=== PATIENT | male | born 1995 | race Caucasian/White ===

== ENCOUNTER 2017-12-19 13:16 | Emergency (ER) | payer OTHER ==
[2017-12-19 16:43] LABS: BASO % 0.2 % (0.0-1.0); EOS # 0.1 10^3/uL (0.0-0.50); EOS % 0.4 % (0.0-3.0); HEMATOCRIT 49.1 % (42.0-52.0); HEMOGLOBIN 16.8 g/dl (13.5-17.5); IMMATURE GRANULOCYTE % 0.4 % (0-3.0); LYMPH # 0.5 10^3/uL (1.5-6.5); LYMPH % 3.6 % (24.0-44.0); MEAN CORPUSCULAR HGB CONC 34.2 g/dl (32.0-36.5); MEAN CORPUSCULAR VOLUME 84.7 fl (80.0-96.0); MONO # 0.4 10^3/uL (0.0-0.8); MONO % 2.9 % (0.0-5.0); NEUTROPHILS # 12.3 10^3/uL (1.8-7.7); NEUTROPHILS % 92.5 % (36.0-66.0); PLATELET COUNT, AUTOMATED 207 10^3/uL (150-450); RED CELL DISTRIBUTION WIDTH 12.5 % (11.5-14.5); WHITE BLOOD COUNT 13.4 10^3/uL (4.0-10.0)
[2017-12-19] MEDS: MORPHINE 2 MG/ML 1ML SYRINGE (J2270) IV (16:47)
[2017-12-19] MEDS: PANTOPRAZOLE 40MG INJ (PROTONIX) (C9113) IV (16:48)
[2017-12-19] MEDS: ONDANSETRON 4MG/2ML VIAL (J2405) IV (16:48)
[2017-12-19] MEDS: NS 1,000 ML IV (16:48)
[2017-12-19 16:53] LABS: KETONE, URINE AUTO RFX NEGATIVE (NEGATIVE); MUCUS, URINE RFX SMALL (NEGATIVE); NITRITE, URINE AUTO RFX NEGATIVE (NEGATIVE); RBC, URINE AUTO RFX 1 /HPF (0-3); SPECIFIC GRAVITY UR AUTO RFX 1.032 (1.002-1.035); SQUAM EPITHELIAL CELL UR AURFX 0 /HPF (0-6); WBC, URINE AUTO RFX 7 /HPF (0-3)
[2017-12-19 16:54] LABS: LEUKOCYTE ESTERASE UR AUTO RFX 1+ (NEGATIVE)
[2017-12-19] MEDS ORDERED: ISOVUE-370 76% 100ML VIAL (Q9967) As Ordered (17:03)
[2017-12-19 17:05] LABS: INR 1.02; PROTHROMBIN TIME 13.5 SECONDS (12.4-14.5)
[2017-12-19 17:06] LABS: ALBUMIN 4.3 GM/DL (3.2-5.2); ALBUMIN/GLOBULIN RATIO 1.23 (1.00-1.93); ALKALINE PHOSPHATASE 52 U/L (45-117); ALT/SGPT 24 U/L (12-78); ANION GAP 5 MEQ/L (8-16); AST/SGOT 14 U/L (7-37); BILIRUBIN,DIRECT 0.2 MG/DL (0.0-0.2); BILIRUBIN,TOTAL 1.1 MG/DL (0.2-1.0); BLOOD UREA NITROGEN 15 MG/DL (7-18); CALCIUM LEVEL 8.7 MG/DL (8.5-10.1); CARBON DIOXIDE LEVEL 31 MEQ/L (21-32); CHLORIDE LEVEL 105 MEQ/L (98-107); CREATININE FOR GFR 0.98 MG/DL (0.70-1.30); GLOMERULAR FILTRATION RATE > 60.0 (>60); GLUCOSE, FASTING 123 MG/DL (70-100); LIPASE 84 U/L (73-393); PARTIAL THROMBOPLASTIN TIME 29.2 SECONDS (26.8-37.9); POTASSIUM SERUM 3.8 MEQ/L (3.5-5.1); SODIUM LEVEL 141 MEQ/L (136-145); TOTAL PROTEIN 7.8 GM/DL (6.4-8.2)
== END 2017-12-19 20:06 | disposition home or self-care (01) ==
LOC: M ED 13:16
DX: K52.9 Noninfective gastroenteritis and colitis, unspecified (principal); R93.5 Abnormal findings on diagnostic imaging of other abdominal regions, including retroperitoneum
CPT/HCPCS: C9113

== ENCOUNTER 2018-02-17 19:09 | Emergency (ER) | payer OTHER ==
[2018-02-17] MEDS: AMOXICILLIN 500 MG CAP PO (21:26)
== END 2018-02-17 21:34 | disposition home or self-care (01) ==
LOC: M ED 19:09
DX: H60.91 Unspecified otitis externa, right ear (principal); F17.200 Nicotine dependence, unspecified, uncomplicated
CPT/HCPCS: 99283

== ENCOUNTER 2018-08-01 11:32 | Emergency (ER) | payer OTHER ==
[2018-08-01] MEDS: IBUPROFEN 800 MG TAB PO (13:45)
== END 2018-08-01 13:54 | disposition home or self-care (01) ==
LOC: M ED 11:32
DX: R07.89 Other chest pain (principal); F17.210 Nicotine dependence, cigarettes, uncomplicated
CPT/HCPCS: 71046

== ENCOUNTER → 2018-09-08 | Outpatient (REF) | payer OTHER ==
[~2018-09-08] MED LIST: AMOX500C PO; IBUP-1022 PO; KETO10TAB PO; NEOM1SOL19 OTIC; OMEP40CA2 PO; ZOFR4TAB14 PO
[2018-09-08 18:28] LABS: ALBUMIN 4.4 GM/DL (3.2-5.2); ALT/SGPT 26 U/L (12-78); BILIRUBIN,TOTAL 0.8 MG/DL (0.2-1.0); BLOOD UREA NITROGEN 11 MG/DL (7-18); CALCIUM LEVEL 8.9 MG/DL (8.5-10.1); CARBON DIOXIDE LEVEL 29 MEQ/L (21-32); CHLORIDE LEVEL 105 MEQ/L (98-107); CREATININE FOR GFR 0.88 MG/DL (0.70-1.30); FREE T4 1.11 NG/DL (0.76-1.46); GLOMERULAR FILTRATION RATE > 60.0 (>60); GLUCOSE, FASTING 76 MG/DL (70-100); POTASSIUM SERUM 4.1 MEQ/L (3.5-5.1); SODIUM LEVEL 141 MEQ/L (136-145); TOTAL PROTEIN 7.1 GM/DL (6.4-8.2)
[2018-09-08 18:57] LABS: HEMOGLOBIN A1c 5.3 %
[2018-09-08 20:52] LABS: CHLAMYDIA DNA AMPLIFICATION NEGATIVE (NEGATIVE); GC DNA AMPLIFICATION NEGATIVE (NEGATIVE)
[2018-09-09 10:23] LABS: HEPATITIS B SURFACE ANTIBODY NEGATIVE (POSITIVE)
[2018-09-09 10:34] LABS: HEPATITIS B SURFACE ANTIGEN NEGATIVE (NEGATIVE)
[2018-09-09 11:02] LABS: HIV 1&2 SCREEN CENTAUR NEGATIVE (NEGATIVE)
== END ==
LOC: M SFHCPLAZ 14:07
PROVIDERS: ATTEND Nurse Practitioner Family
DX: M54.5 Low back pain (principal); E66.9 Obesity, unspecified; Z13.1 Encounter for screening for diabetes mellitus; Z11.3 Encounter for screening for infections with a predominantly sexual mode of transmission

== ENCOUNTER 2018-10-13 09:14 | Emergency (ER) | payer OTHER ==
[~2018-10-13] VITALS: Ht 190.5 cm; Wt 125.5 kg
[2018-10-13 09:14] VITALS: BP 124/78
[~2018-10-13 09:14] MED LIST changes: -KETO10TAB PO
[2018-10-13] MEDS ORDERED: KETO10TAB PO (09:58)
[2018-10-13] MEDS ORDERED: KETOROLAC TROMETHAMINE 10 MG TAB PO ONE (10:00)
--- NOTE | 2018-10-13 10:00 | REP ---
Right ankle series: Four views. History: Injury in a fall. Findings: Four views right ankle demonstrate an intact ankle mortise. No fracture or subluxation is seen. Impression: No fracture noted. Electronically Signed by Kelechi Curry MD 10/13/2018 09:51 A
== END 2018-10-13 10:10 | disposition home or self-care (01) ==
LOC: M ED 09:14
DX: S93.401A Sprain of unspecified ligament of right ankle, initial encounter (principal); W10.9XXA Fall (on) (from) unspecified stairs and steps, initial encounter; Y92.59 Other trade areas as the place of occurrence of the external cause; Y93.89 Activity, other specified; F17.200 Nicotine dependence, unspecified, uncomplicated

== ENCOUNTER 2018-10-17 11:16 | Emergency (ER) | payer OTHER ==
[~2018-10-17] VITALS: Ht 190.5 cm; Wt 116.4 kg
[~2018-10-17 11:16] MED LIST changes: +KETO10TAB PO
[2018-10-17 11:28] VITALS: BP 147/87
[2018-10-17] MEDS ORDERED: NORCO, ANEXSIA 5/325MG TABLET (HYDROcodone/ACETAMINOPHEN) PO ONE (12:00)
== END 2018-10-17 12:04 | disposition home or self-care (01) ==
LOC: M ED 11:16
DX: S99.911A Unspecified injury of right ankle, initial encounter (principal); X50.9XXA Other and unspecified overexertion or strenuous movements or postures, initial encounter; Y92.59 Other trade areas as the place of occurrence of the external cause; F17.200 Nicotine dependence, unspecified, uncomplicated

== ENCOUNTER 2018-12-20 18:04 | Emergency (ER) | payer OTHER ==
[~2018-12-20] VITALS: Ht 193 cm; Wt 121.9 kg
[2018-12-20 19:33] VITALS: BP 123/75
== END 2018-12-20 19:34 | disposition home or self-care (01) ==
LOC: M ED 18:04
DX: F43.0 Acute stress reaction (principal)

== ENCOUNTER 2019-07-03 01:58 | Emergency (ER) | payer OTHER ==
[~2019-07-03] VITALS: Ht 188 cm; Wt 126.4 kg
[~2019-07-03 01:58] MED LIST changes: -OMEP40CA2 PO; +OMEP40CA97 PO
[2019-07-03 01:59] VITALS: BP 144/84
[2019-07-03] MEDS ORDERED: IBUP-1022 PO (02:03)
[2019-07-03] MEDS ORDERED: KETOROLAC 60 MG/2 ML VIAL (J1885) IM ONE (03:00)
[2019-07-03] MEDS ORDERED: CLINDAMYCIN 150 MG CAP PO ONE (03:00)
[2019-07-03] MEDS ORDERED: CLEO300C2 PO (03:02)
== END 2019-07-03 03:58 | disposition home or self-care (01) ==
LOC: M ED 01:58
DX: K08.89 Other specified disorders of teeth and supporting structures (principal); F17.210 Nicotine dependence, cigarettes, uncomplicated
CPT/HCPCS: 96372; 99283; J1885

== ENCOUNTER 2019-07-08 05:38 | Emergency (ER) | payer OTHER ==
[~2019-07-08] VITALS: Ht 188 cm; Wt 125.0 kg
[~2019-07-08 05:38] MED LIST changes: +CLEO300C2 PO
[2019-07-08] MEDS ORDERED: CLIN300C5 (05:43)
[2019-07-08 06:50] VITALS: BP 132/74
== END 2019-07-08 06:51 | disposition home or self-care (01) ==
LOC: M ED 05:38
DX: Z60.9 Problem related to social environment, unspecified (principal); F41.9 Anxiety disorder, unspecified; Z79.899 Other long term (current) drug therapy

== ENCOUNTER 2019-07-20 23:12 | Emergency (ER) | payer OTHER ==
[~2019-07-20] VITALS: Ht 188 cm; Wt 124.1 kg
[2019-07-20 23:12] VITALS: BP 141/84
[~2019-07-20 23:12] MED LIST changes: +CLIN300C5
--- NOTE | 2019-07-21 08:23 | REP ---
Clinical: Trauma. Technique: AP, lateral, bilateral oblique views right foot . Findings: No definite acute fracture or dislocation is appreciated. Suggestions for congenital unfused talar apophysis (less likely representing fracture and correlation with point of tenderness is recommended). Surrounding soft tissues are unremarkable. No subcutaneous emphysema or radiodense foreign body. Impression: As above. No definite acute fracture or dislocation. Electronically Signed by Elmo Eli MD 07/21/2019 08:15 A
--- NOTE | 2019-07-21 08:26 | REP ---
Clinical: Trauma. Fall. . Technique: AP, lateral, bilateral oblique views right ankle . Findings: No acute fracture or dislocation. Skeletal structures and joint spaces are intact and normal. Ankle mortise appears stable. No subcutaneous emphysema or radiodense foreign body. Impression: Normal right ankle radiograph series. Electronically Signed by Elmo Eli MD 07/21/2019 08:17 A
== END 2019-07-21 00:34 | disposition home or self-care (01) ==
LOC: M ED 23:12
DX: S93.401A Sprain of unspecified ligament of right ankle, initial encounter (principal); W00.0XXA Fall on same level due to ice and snow, initial encounter; Y92.89 Other specified places as the place of occurrence of the external cause; Y99.0 Civilian activity done for income or pay; F17.210 Nicotine dependence, cigarettes, uncomplicated

== ENCOUNTER 2019-08-18 03:48 | Emergency (ER) | payer OTHER ==
[~2019-08-18] VITALS: Ht 188 cm; Wt 120.5 kg
[2019-08-18] MEDS ORDERED: BENZOCAINE 20% GEL 9GM TUBE (ANBESOL MAX STRENGTH) TOP ONE (07:15)
[2019-08-18] MEDS ORDERED: BENZONATATE 100 MG CAP PO ONE (07:15)
[2019-08-18] MEDS ORDERED: KETOROLAC 30 MG/ML VIAL (J1885) IM ONE (07:15)
[2019-08-18] MEDS ORDERED: TESS100C PO (08:04)
[2019-08-18] MEDS ORDERED: IBUP-1022 PO (08:04)
[2019-08-18] MEDS ORDERED: AUGM875T28 PO (08:04)
[2019-08-18 08:32] VITALS: BP 127/72
== END 2019-08-18 08:39 | disposition home or self-care (01) ==
LOC: M ED 03:48
DX: K02.9 Dental caries, unspecified (principal); H92.02 Otalgia, left ear; J06.9 Acute upper respiratory infection, unspecified; Z87.891 Personal history of nicotine dependence; Z79.2 Long term (current) use of antibiotics
CPT/HCPCS: 96372; 99283; J1885

== ENCOUNTER 2019-12-19 23:30 | Emergency (ER) | payer OTHER ==
[~2019-12-19] VITALS: Ht 190.5 cm; Wt 130.7 kg
[~2019-12-19 23:30] MED LIST changes: +AUGM875T28 PO; +TESS100C PO
[2019-12-19] MEDS ORDERED: IBUP200C28 PO (23:40)
[2019-12-20] MEDS ORDERED: GI COCKTAIL 50ML BTL(HYOSCYAMINE/MAALOX/LIDOCAINE VISCOUS)(1:3:1) PO ONE (00:15)
[2019-12-20 00:35] LABS: BASO % 0.4 % (0.0-1.0); EOS % 0.4 % (0.0-3.0); HEMATOCRIT 46.6 % (42.0-52.0); HEMOGLOBIN 16.1 g/dl (13.5-17.5); LYMPH # 0.5 10^3/uL (1.5-5.0); LYMPH % 7.4 % (24.0-44.0); MEAN CORPUSCULAR HGB CONC 34.5 g/dl (32.0-36.5); MONO # 0.3 10^3/uL (0.0-0.8); MONO % 4.7 % (0.0-5.0); NEUTROPHILS # 6.1 10^3/uL (1.5-8.5); NEUTROPHILS % 86.8 % (36.0-66.0); PLATELET COUNT, AUTOMATED 139 10^3/uL (150-450); RED BLOOD COUNT 5.55 10^6/uL (4.30-6.10)
[2019-12-20 01:00] LABS: ALBUMIN 3.8 GM/DL (3.2-5.2); BILIRUBIN,DIRECT 0.4 MG/DL (0.0-0.2); BILIRUBIN,TOTAL 1.3 MG/DL (0.2-1.0); TOTAL PROTEIN 6.5 GM/DL (6.4-8.2)
--- NOTE | 2019-12-20 01:57 | REPVR ---
PROCEDURE INFORMATION: Exam: US Abdomen Limited, Right Upper Quadrant Exam date and time: 12/20/2019 1:47 AM Age: 24 years old Clinical indication: Nausea and vomiting; Abdominal pain; Acute; Additional info: Abd pain/nausea TECHNIQUE: Imaging protocol: Real-time ultrasound of the abdomen with image documentation. Examination was focused on the right upper quadrant. COMPARISON: No relevant prior studies available. FINDINGS: Liver: Normal. No masses. Gallbladder: No gallbladder wall thickening. No gallstones. There are fold in the gallbladder. Common bile duct: CBD measures 4.8 mm in diameter. Pancreas: Pancreas is obscured by overlying bowel gas. Right kidney: Right kidney measures 11.2 cm in length. No right hydronephrosis. Unremarkable right kidney. Normal echogenicity of the right kidney. IMPRESSION: Unremarkable right upper quadrant ultrasound. Electronically signed by: Brinda Field On 12/20/2019 01:57:39 AM
[2019-12-20] MEDS ORDERED: ONDA4TAB6 PO (02:06)
[2019-12-20] MEDS ORDERED: LIDVISCBTL PO (02:06)
[2019-12-20 02:23] VITALS: BP 126/76
== END 2019-12-20 02:30 | disposition home or self-care (01) ==
LOC: M ED 23:30
DX: R19.7 Diarrhea, unspecified (principal); R11.0 Nausea; K08.89 Other specified disorders of teeth and supporting structures
CPT/HCPCS: 76705; 80047; 80076; 83690; 85025; 87486; 87581; 87633; 87798; 99283; C9803; U0002

== ENCOUNTER 2020-03-18 23:45 | Emergency (ER) | payer OTHER ==
[~2020-03-18 23:45] MED LIST changes: +IBUP200C28 PO; +LIDVISCBTL PO; +ONDA4TAB6 PO
== END 2020-03-19 02:00 | disposition home or self-care (01) ==
LOC: M ED 23:45
DX: R53.83 Other fatigue (principal); F17.200 Nicotine dependence, unspecified, uncomplicated
CPT/HCPCS: 99283; U0002

== ENCOUNTER → 2020-09-16 | Outpatient (CLI) | payer OTHER ==
[~2020-09-16] MED LIST changes: -CLIN300C5; +CLIN300C6
== END ==
LOC: M OUTALCOH 08:29
PROVIDERS: ATTEND Psychiatry & Neurology Psychiatry
DX: Z13.39 Encounter for screening examination for other mental health and behavioral disorders (principal); F12.20 Cannabis dependence, uncomplicated

== ENCOUNTER 2020-10-10 10:00 | Outpatient (RCR) | payer OTHER | END 2020-10-13 | LOC: M OUTALCOH 10:00 | PROVIDERS: ATTEND Psychiatry & Neurology Psychiatry | DX: F10.10 Alcohol abuse, uncomplicated (principal); F12.20 Cannabis dependence, uncomplicated; Z72.0 Tobacco use ==

== ENCOUNTER 2020-10-15 22:35 | Emergency (ER) | payer OTHER ==
[~2020-10-15] VITALS: Ht 193 cm; Wt 138.5 kg
[2020-10-15] MEDS ORDERED: ACET-683 PO (22:52)
--- NOTE | 2020-10-15 23:35 | REPVR ---
PROCEDURE INFORMATION: Exam: XR Right Humerus Exam date and time: 10/15/2020 11:04 PM Age: 25 years old Clinical indication: Pain; Upper arm; Right; Additional info: Injured R arm TECHNIQUE: Imaging protocol: XR Right humerus. Views: 2 or more views. COMPARISON: No relevant prior studies available. FINDINGS: Bones/joints: Bony structures are aligned normally. No fracture. No evidence of bony lesion. Joint spaces are grossly well-maintained. Incidental volar supracondylar process 7 cm proximal to the elbow joint. Soft tissues: No focal soft tissue swelling, or effacement of subcutaneous soft tissue planes. IMPRESSION: Unremarkable radiographic series of the humerus and upper arm. Electronically signed by: Haim Trinh On 10/15/2020 23:36:01 PM
--- NOTE | 2020-10-15 23:36 | REPVR ---
PROCEDURE INFORMATION: Exam: XR Right Shoulder Exam date and time: 10/15/2020 11:04 PM Age: 25 years old Clinical indication: Pain; Shoulder; Right; Additional info: Injured R arm TECHNIQUE: Imaging protocol: XR Right shoulder. Views: 2 or more views. COMPARISON: No relevant prior studies available. FINDINGS: Bones/joints: Bony mineralization is normal for age. No evidence of acute fracture. No concerning osseous lesion. AC joint is aligned normally. Glenohumeral joint is aligned normally. Old, healed right rib fractures are present. Soft tissues: No abnormal soft tissue process. No concerning soft tissue calcifications. IMPRESSION: Unremarkable shoulder radiographs. Electronically signed by: Haim Trinh On 10/15/2020 23:37:09 PM
[2020-10-15 23:58] VITALS: BP 137/91
== END 2020-10-16 00:02 | disposition home or self-care (01) ==
LOC: M ED 22:35
DX: M25.511 Pain in right shoulder (principal); F17.210 Nicotine dependence, cigarettes, uncomplicated

== ENCOUNTER → 2020-11-13 | Outpatient (RCR) | payer OTHER ==
[~2020-11-13] MED LIST changes: +ACET-683 PO
== END ==
LOC: M OUTALCOH 10-14 16:00
PROVIDERS: ATTEND Psychiatry & Neurology Psychiatry
DX: F10.10 Alcohol abuse, uncomplicated (principal); F12.20 Cannabis dependence, uncomplicated; Z72.0 Tobacco use

== ENCOUNTER → 2020-12-13 | Outpatient (RCR) | payer OTHER | LOC: M OUTALCOH 11-14 13:00 | PROVIDERS: ATTEND Psychiatry & Neurology Psychiatry | DX: F10.10 Alcohol abuse, uncomplicated (principal); F12.20 Cannabis dependence, uncomplicated; Z72.0 Tobacco use ==

== ENCOUNTER 2021-01-06 14:00 | Outpatient (RCR) | payer OTHER | END 2021-01-13 | LOC: M OUTALCOH 14:00 | PROVIDERS: ATTEND Psychiatry & Neurology Psychiatry | DX: F10.10 Alcohol abuse, uncomplicated (principal); F12.20 Cannabis dependence, uncomplicated; Z72.0 Tobacco use ==

== ENCOUNTER 2021-03-25 23:58 | Emergency (ER) | payer OTHER ==
[~2021-03-25] VITALS: Ht 193 cm; Wt 151.4 kg
[2021-03-25 23:58] VITALS: BP 131/84
[~2021-03-25 23:58] MED LIST changes: +OMEP40CA4 PO; -OMEP40CA97 PO
== END 2021-03-26 02:20 | disposition left against medical advice (07) ==
LOC: M ED 23:58
DX: Z53.21 Procedure and treatment not carried out due to patient leaving prior to being seen by health care provider (principal)

== ENCOUNTER → 2021-12-15 | Outpatient (CLI) | payer OTHER ==
[~2021-12-15] MED LIST changes: +CLIN-250; -CLIN300C6
== END ==
LOC: M OUTALCOH 08:29
PROVIDERS: ATTEND Psychiatry & Neurology Psychiatry
DX: Z02.83 Encounter for blood-alcohol and blood-drug test (principal)

== ENCOUNTER 2021-12-22 13:36 | Outpatient (RCR) | payer OTHER | END 2022-01-13 | LOC: M OUTALCOH 13:36 | PROVIDERS: ATTEND Psychiatry & Neurology Psychiatry | DX: F10.11 Alcohol abuse, in remission (principal); F12.21 Cannabis dependence, in remission; Z72.0 Tobacco use ==

== ENCOUNTER 2024-02-25 11:20 | Emergency (ER) | payer OTHER, MEDICAID ==
[~2024-02-25] VITALS: Ht 185.4 cm; Wt 136.6 kg
[~2024-02-25 11:20] MED LIST changes: +ONDA-282 PO; -ONDA4TAB6 PO
[2024-02-25 11:22] VITALS: BP 129/73; TEMP 97.1; O2SAT 97
== END 2024-02-25 12:57 | disposition home or self-care (01) ==
LOC: M ED 11:20
DX: S99.911A Unspecified injury of right ankle, initial encounter (principal); X50.0XXA Overexertion from strenuous movement or load, initial encounter; R51.9 Headache, unspecified; F17.200 Nicotine dependence, unspecified, uncomplicated; Y92.009 Unspecified place in unspecified non-institutional (private) residence as the place of occurrence of the external cause; Y93.89 Activity, other specified; Y99.9 Unspecified external cause status